=== PATIENT | male | born 1965 | race Two or more races ===

== ENCOUNTER 2020-06-20 04:40 | Emergency (ER) | payer MEDICAID ==
[~2020-06-20] VITALS: Ht 172.7 cm; Wt 97.2 kg
[~2020-06-20 04:40] MED LIST: ASPI-515 PO; LORA10CA PO; LOVA10TA PO; METO-93 PO
[2020-06-20 04:42] VITALS: BP 118/68
[2020-06-20] MEDS ORDERED: LIDOCAINE-MPF 1%, 5ML INFIL ONE (05:00)
[2020-06-20] MEDS ORDERED: DIPH,PERTUSS(ACELL),TET VAC/PF 0.5 ML IM-VACC ONE ×2 (05:00→05:09)
[2020-06-20] MEDS ORDERED: MICROFIBRILLAR COLLAGEN 0.5GM/PACK TP ONE (05:00)
[2020-06-20] MEDS ORDERED: LIDOCAINE-MPF 1%, 5ML ONE (05:09)
[2020-06-20] MEDS ORDERED: MICROFIBRILLAR COLLAGEN 1 GM TP ONE (05:09)
--- NOTE | 2020-06-20 05:50 | NUR ---
WOUND CARE PROVIDED DIRECTED BY JESSI BULLOCK, DRESSING APPLIED
== END 2020-06-20 06:02 | disposition home or self-care (01) ==
LOC: ED 05:30
DX: S61.012A Laceration without foreign body of left thumb without damage to nail, initial encounter (principal); Z89.012 Acquired absence of left thumb; W26.0XXA Contact with knife, initial encounter; Y93.89 Activity, other specified; Y92.89 Other specified places as the place of occurrence of the external cause; Y99.8 Other external cause status
CPT/HCPCS: 64450; 90471; 90715; 99284